=== PATIENT | male | born 1990 | race Caucasian/White ===

== ENCOUNTER 2017-07-10 20:46 | Emergency (ER) | payer SELFPAY ==
[2017-07-10 21:07] VITALS: BP 128/79; PULSE 92; RESP 16; TEMP 98.9; O2SAT 97
[2017-07-10] MEDS ORDERED: Amoxicillin-Clav 500-125 mg Tab PO STA (22:12)
[2017-07-10] MEDS ORDERED: Naproxen 500 MG TAB PO STA (22:15)
--- NOTE | 2017-07-10 23:17 | ED PDOC ---
Upper Extremity Pain/Injury Time Seen by Provider: 07/10/17 21:36 Chief Complaint (Nursing): Bite History Per: Patient History/Exam Limitations: no limitations Additional Complaint(s): 26-year-old male reports sustaining multiple small superficial lacerations to bilateral hands when he was walking his dog and neighbor's dog tried to bite his dog, he states he tried to break up both animals and in process was bit to b /l hands, also is c/o R wrist pain. Patient states that he knows who the line haul owner operator of the dog is and can locate the line haul owner operator and the dog, he is unsure of the rabies vaccination of the dog that bit him. Otherwise: (-) other injury, (-) numbness , (-) decrease in ROM. Patient is R hand dominant. PMD none Tetanus up to date Past Medical History Vital Signs: Last Vital Signs Temp 98.9 F 07/10/17 21:03 Pulse 92 H 07/10/17 21:03 Resp 16 07/10/17 21:03 BP 128/79 07/10/17 21:03 Pulse Ox 97 07/10/17 21:03 - Medical History PMH: No Chronic Diseases - Family History Family History: States: Unknown Family Hx - Home Medications Home Medications: Ambulatory Orders Medication Instructions Recorded Naproxen 500 mg PO BID PRN #20 tab 06/01/15 Doxycycline Hyclate 100 mg PO BID #20 capsule 03/04/16 traMADol [Ultram] 50 mg PO Q6 PRN #12 tab 03/04/16 Amoxicillin/Potassium Clav 1 each PO TID #15 tablet 07/10/17 [Augmentin 500-125 Tablet] Naproxen 500 mg PO BID #30 tab 07/10/17 - Allergies Allergies/Adverse Reactions: Allergies Allergy/AdvReac Type Severity Reaction Status Date / Time No Known Allergies Allergy Verified 05/31/15 23:39 Review of Systems Constitutional: Negative for: Fever, Chills, Weakness Musculoskeletal: Positive for: Hand Pain, Other (R wirst pain). Negative for: Neck Pain, Back Pain Skin: Positive for: Other (lacerations, abrasions). Negative for: Rash, Lesions , Jaundice Physical Exam - Reviewed Nursing Documentation Reviewed: Yes Vital Signs Reviewed: Yes - Physical Exam Appears: Positive for: Well, In Acute Distress (mild painful) Skin: Positive for: Normal Color, Warm, Dry Pulses-Radial (L): 2+ Pulses-Radial (R): 2+ Extremity: Positive for: Normal ROM, Capillary Refill (normal), Other (R hand : +1 cm V shaped laceration to the mid volar 4th digit, +0.5 cm laceration to the webspace of the 2nd and 3rd digit L hand : +multiple abrasions to the L thumb) . Negative for: Tenderness, Swelling Neurologic/Psych: Positive for: Alert, academic manager II-XII. Negative for: Motor/Sensory Deficits - ECG O2 Sat by Pulse Oximetry: 97 Medical Decision Making Medical Decision Making: Plan : - Augmentin PO - Naprosyn PO - Lac repair - XR R wrist XR right wrist: no fracture, no dislocation, as read by PA Patient advised that official radiology read of XR is still pending and will call the patient if there is any discrepancy within 24 hours. X-ray results discussed with the patient in great detail. Laceration repair performed by PA. Patient instructed on proper wound care. Rick wrap applied to the R hand and wrist. Advised to follow up with the clinic in 1-2 days without fail. Advised to take medication as prescribed. Instructed to clean wound daily with soap and water, and look for any signs of infection. Return to the emergency room at any time for any new or worsening symptoms. Patient states he fully agrees with and understands discharge instructions. States that he agrees with the plan and disposition. Verbalized and repeated discharge instructions and plan. I have given the patient opportunity to ask any additional questions. Procedures - Laceration/Wound Repair Right Finger Wound Length (cm): 1 Wound's Depth, Shape: linear Irrigated w/ Saline (ccs): 100 Wound Repaired With: Skin adhesive Suture Size/Type: 5:0, nylon Number of Sutures: 1 Wound Complexity: Simple Progress: Patient tolerated the procedure well, clean dressing was applied Disposition - Clinical Impression Clinical Impression: Animal bite wound, Sprain of wrist, right - Patient ED Disposition Is Patient to be Admitted: No Counseled Patient/Family Regarding: Studies Performed, Diagnosis, Need For Followup - Disposition Disposition: Routine/Home Disposition Time: 23:21 Condition: STABLE Additional Instructions: Thank you for letting us take care of you today. You were treated for dog bite. The emergency medical care you received today was directed at your acute symptoms. If you were prescribed any medication, please fill it and take as directed. It may take several days for your symptoms to resolve. Return to the emergency room at any time for any new or worsening symptoms. Please contact your doctor in 2 days for re-evaluation and follow up / or call one of the physicians/clinics you have been referred to that are listed on the Patient Visit Information form that is included in your discharge packet. Bring any paperwork you were given at discharge with you along with any medications you are taking to your follow up visit. Our treatment cannot replace ongoing medical care by a primary care provider (PCP) outside of the emergency department. Thank you for allowing the [facility] team to be part of your care today. Prescriptions: Amoxicillin/Potassium Clav [Augmentin 500-125 Tablet] 1 each PO TID #15 tablet Naproxen 500 mg PO BID #30 tab Instructions: Animal Bite (ED), Wrist Sprain (ED) Forms: [employer] (Kyrgyz), [facility] ED School/Work Excuse Print Language: FIJIAN - PA / MOLASSES PREPARER / Resident Statement /DO has reviewed & agrees with the documentation as recorded.
[2017-07-11] MEDS ORDERED: Naproxen 500 MG TAB PO ONE (00:36)
--- NOTE | 2017-07-11 09:53 | RAD ---
PROCEDURE: Right Hand Radiographs. HISTORY: pain COMPARISON: None. FINDINGS: BONES: No acute fracture or destructive bony lesion identified. An old healed boxer's fracture of the 5th metacarpal bones identified. JOINTS: Normal. No osteoarthritic changes. SOFT TISSUES: No emphysema soft tissue changes are identified or retained radiodense foreign body. OTHER FINDINGS: None. IMPRESSION: An old healed boxer's fracture of the 5th metacarpal is identified. No acute fracture, dislocation or suspicious lytic or blastic change evident. Soft tissues appear diffusely unremarkable.
--- NOTE | 2017-07-11 10:02 | RAD ---
PROCEDURE: Right Wrist Radiographs. HISTORY: pain COMPARISON: None. FINDINGS: BONES: No acute fracture or destructive bony lesion identified. Instill old healed boxer's fracture right 5th metacarpal bone. JOINTS: Normal. No dislocation. SOFT TISSUES: No retained radiodense foreign body or emphysema soft tissue changes are identified. OTHER FINDINGS: None. IMPRESSION: No acute findings throughout this right wrist radiograph series. Chronic healed right 5th metacarpal fracture noted.
== END 2017-07-11 00:53 | disposition home or self-care (01) ==
LOC: H.ER 20:46
DX: S63.501A Unspecified sprain of right wrist, initial encounter (principal); S61.411A Laceration without foreign body of right hand, initial encounter; S61.412A Laceration without foreign body of left hand, initial encounter; W54.0XXA Bitten by dog, initial encounter; Y92.89 Other specified places as the place of occurrence of the external cause